=== PATIENT | male | born 1940 | race Caucasian/White ===

== ENCOUNTER 2020-08-13 13:20 | Outpatient (CLI) | payer MEDICARE ==
[2020-08-13] MEDS ORDERED: LIDOCAINE SOLN 4% 50 ML BOTTLE ONE (13:36)
[2020-08-13] MEDS ORDERED: DAKINS HALF STRENGTH (0.25%) 480 ML BOTTLE ONE (14:30)
[2020-08-13] MEDS ORDERED: MUPIROCIN 2% CREAM 15 GM TUBE TP ONE ×2 (14:34→14:51)
== END 2020-08-13 23:59 | disposition home health service (06) ==
LOC: WOU 13:20
PROVIDERS: ATTEND Podiatrist Foot & Ankle Surgery
DX: I87.333 Chronic venous hypertension (idiopathic) with ulcer and inflammation of bilateral lower extremity (principal); L97.822 Non-pressure chronic ulcer of other part of left lower leg with fat layer exposed; L97.812 Non-pressure chronic ulcer of other part of right lower leg with fat layer exposed; S91.112A Laceration without foreign body of left great toe without damage to nail, initial encounter; S91.111A Laceration without foreign body of right great toe without damage to nail, initial encounter; S91.115A Laceration without foreign body of left lesser toe(s) without damage to nail, initial encounter; S91.114A Laceration without foreign body of right lesser toe(s) without damage to nail, initial encounter; W18.30XA Fall on same level, unspecified, initial encounter; Y92.89 Other specified places as the place of occurrence of the external cause; M86.071 Acute hematogenous osteomyelitis, right ankle and foot; I87.2 Venous insufficiency (chronic) (peripheral); I73.9 Peripheral vascular disease, unspecified; R60.0 Localized edema; Z79.82 Long term (current) use of aspirin
CPT/HCPCS: 11042; 11044; 87070-TC; 87075-TC; 87186-TC; 88305-TC; 88311-TC; 88312-TC

== ENCOUNTER 2020-08-20 13:10 | Outpatient (CLI) | payer MEDICARE ==
[2020-08-20] MEDS ORDERED: LIDOCAINE SOLN 4% 50 ML BOTTLE ONE (13:15)
[2020-08-20] MEDS ORDERED: DAKINS HALF STRENGTH (0.25%) 480 ML BOTTLE ONE (14:48)
[2020-08-20] MEDS ORDERED: MUPIROCIN 2% CREAM 15 GM TUBE TP ONE (14:53)
== END 2020-08-20 23:59 | disposition home health service (06) ==
LOC: WOU 13:10
PROVIDERS: ATTEND Podiatrist Foot & Ankle Surgery
DX: I87.333 Chronic venous hypertension (idiopathic) with ulcer and inflammation of bilateral lower extremity (principal); L97.822 Non-pressure chronic ulcer of other part of left lower leg with fat layer exposed; L97.812 Non-pressure chronic ulcer of other part of right lower leg with fat layer exposed; S91.111A Laceration without foreign body of right great toe without damage to nail, initial encounter; S91.114A Laceration without foreign body of right lesser toe(s) without damage to nail, initial encounter; X58.XXXA Exposure to other specified factors, initial encounter; Y92.89 Other specified places as the place of occurrence of the external cause; S91.112D Laceration without foreign body of left great toe without damage to nail, subsequent encounter; S91.115D Laceration without foreign body of left lesser toe(s) without damage to nail, subsequent encounter; X58.XXXD Exposure to other specified factors, subsequent encounter; I87.2 Venous insufficiency (chronic) (peripheral); I73.9 Peripheral vascular disease, unspecified; R60.0 Localized edema; M86.071 Acute hematogenous osteomyelitis, right ankle and foot; I10 Essential (primary) hypertension; Z96.641 Presence of right artificial hip joint; Z79.82 Long term (current) use of aspirin
CPT/HCPCS: 11042; 11044; A6452

== ENCOUNTER 2020-08-27 13:18 | Outpatient (CLI) | payer MEDICARE ==
[~2020-08-27 13:18] MED LIST: LIDOCAINE SOLN 4% 50 ML BOTTLE ONE
[2020-08-27] MEDS ORDERED: UREA 10% -AHA 4% CREAM 57 GM TUBE ONE (13:35)
[2020-08-27] MEDS ORDERED: GENTAMICIN 0.1% CREAM 15 GM TUBE ONE (13:35)
== END 2020-08-27 23:59 | disposition home health service (06) ==
LOC: WOU 13:18
PROVIDERS: ATTEND Podiatrist Foot & Ankle Surgery
DX: S91.112A Laceration without foreign body of left great toe without damage to nail, initial encounter (principal); S91.111A Laceration without foreign body of right great toe without damage to nail, initial encounter; S91.114A Laceration without foreign body of right lesser toe(s) without damage to nail, initial encounter; X58.XXXA Exposure to other specified factors, initial encounter; Y92.89 Other specified places as the place of occurrence of the external cause; M86.071 Acute hematogenous osteomyelitis, right ankle and foot; I87.2 Venous insufficiency (chronic) (peripheral); I73.9 Peripheral vascular disease, unspecified; R60.0 Localized edema; I10 Essential (primary) hypertension; Z79.82 Long term (current) use of aspirin
CPT/HCPCS: 11042; 11043; 87070-TC; 87075-TC; 87186-TC

== ENCOUNTER 2020-09-03 12:05 | Outpatient (CLI) | payer MEDICARE ==
[2020-09-03] MEDS ORDERED: LIDOCAINE SOLN 4% 50 ML BOTTLE ONE (13:40)
[2020-09-03] MEDS ORDERED: UREA 10% -AHA 4% CREAM 57 GM TUBE ONE (14:42)
== END 2020-09-03 23:59 | disposition home or self-care (01) ==
LOC: WOU 12:05
PROVIDERS: ATTEND Podiatrist Foot & Ankle Surgery
DX: S91.114A Laceration without foreign body of right lesser toe(s) without damage to nail, initial encounter (principal); W19.XXXA Unspecified fall, initial encounter; Y92.89 Other specified places as the place of occurrence of the external cause; S91.112D Laceration without foreign body of left great toe without damage to nail, subsequent encounter; S91.111D Laceration without foreign body of right great toe without damage to nail, subsequent encounter; W19.XXXD Unspecified fall, subsequent encounter; I87.2 Venous insufficiency (chronic) (peripheral); I73.9 Peripheral vascular disease, unspecified; R60.0 Localized edema; M86.071 Acute hematogenous osteomyelitis, right ankle and foot; Z79.82 Long term (current) use of aspirin

== ENCOUNTER 2020-09-07 13:15 | Outpatient (CLI) | payer MEDICARE ==
[2020-09-07] MEDS ORDERED: MUPIROCIN 2% CREAM 15 GM TUBE TP ONE (14:18)
[2020-09-07] MEDS ORDERED: DAKINS HALF STRENGTH (0.25%) 480 ML BOTTLE ONE (14:23)
== END 2020-09-07 23:59 | disposition home health service (06) ==
LOC: WOU 13:15
PROVIDERS: ATTEND Podiatrist Foot & Ankle Surgery
DX: T81.31XA Disruption of external operation (surgical) wound, not elsewhere classified, initial encounter (principal); S91.111D Laceration without foreign body of right great toe without damage to nail, subsequent encounter; S91.115D Laceration without foreign body of left lesser toe(s) without damage to nail, subsequent encounter; S91.114D Laceration without foreign body of right lesser toe(s) without damage to nail, subsequent encounter; W18.30XD Fall on same level, unspecified, subsequent encounter; M86.071 Acute hematogenous osteomyelitis, right ankle and foot; I87.2 Venous insufficiency (chronic) (peripheral); R60.0 Localized edema; Z79.82 Long term (current) use of aspirin
CPT/HCPCS: 11044

== ENCOUNTER 2020-09-10 13:00 | Outpatient (CLI) | payer MEDICARE | END 2020-09-10 23:59 | disposition home health service (06) | LOC: WOU 13:00 | PROVIDERS: ATTEND Podiatrist Foot & Ankle Surgery | DX: S91.115A Laceration without foreign body of left lesser toe(s) without damage to nail, initial encounter (principal); W18.30XA Fall on same level, unspecified, initial encounter; Y92.89 Other specified places as the place of occurrence of the external cause; S91.111D Laceration without foreign body of right great toe without damage to nail, subsequent encounter; S91.114D Laceration without foreign body of right lesser toe(s) without damage to nail, subsequent encounter; W18.30XD Fall on same level, unspecified, subsequent encounter; Z79.82 Long term (current) use of aspirin | CPT/HCPCS: 11044 ==

== ENCOUNTER 2020-09-14 13:00 | Outpatient (CLI) | payer MEDICARE ==
[2020-09-14] MEDS ORDERED: LIDOCAINE SOLN 4% 50 ML BOTTLE ONE (13:06)
[2020-09-14] MEDS ORDERED: LIDOCAINE HCL/MPF 1% 30 ML VIAL IJ ONE (13:48)
[2020-09-14] MEDS ORDERED: UREA 10% -AHA 4% CREAM 57 GM TUBE ONE (14:04)
[2020-09-14] MEDS ORDERED: MUPIROCIN 2% CREAM 15 GM TUBE TP ONE (14:04)
== END 2020-09-14 23:59 | disposition home health service (06) ==
LOC: WOU 13:00
PROVIDERS: ATTEND Podiatrist Foot & Ankle Surgery
DX: S91.114A Laceration without foreign body of right lesser toe(s) without damage to nail, initial encounter (principal); W18.30XA Fall on same level, unspecified, initial encounter; Y92.89 Other specified places as the place of occurrence of the external cause; S91.111D Laceration without foreign body of right great toe without damage to nail, subsequent encounter; S91.115D Laceration without foreign body of left lesser toe(s) without damage to nail, subsequent encounter; W18.30XD Fall on same level, unspecified, subsequent encounter; Z79.82 Long term (current) use of aspirin; M86.071 Acute hematogenous osteomyelitis, right ankle and foot; I87.2 Venous insufficiency (chronic) (peripheral); I73.9 Peripheral vascular disease, unspecified; R60.0 Localized edema; Z96.641 Presence of right artificial hip joint
CPT/HCPCS: 11044; J3490

== ENCOUNTER 2020-09-21 13:55 | Outpatient (CLI) | payer MEDICARE ==
[2020-09-21] MEDS ORDERED: UREA 10% -AHA 4% CREAM 57 GM TUBE ONE (13:58)
[2020-09-21] MEDS ORDERED: MUPIROCIN 2% CREAM 15 GM TUBE TP ONE (13:59)
== END 2020-09-21 23:59 | disposition home health service (06) ==
LOC: WOU 13:55
PROVIDERS: ATTEND Podiatrist Foot & Ankle Surgery
DX: S91.111D Laceration without foreign body of right great toe without damage to nail, subsequent encounter (principal); S91.115D Laceration without foreign body of left lesser toe(s) without damage to nail, subsequent encounter; S91.114D Laceration without foreign body of right lesser toe(s) without damage to nail, subsequent encounter; W18.30XD Fall on same level, unspecified, subsequent encounter; I87.2 Venous insufficiency (chronic) (peripheral); I73.9 Peripheral vascular disease, unspecified; R60.0 Localized edema; M86.071 Acute hematogenous osteomyelitis, right ankle and foot; Z79.82 Long term (current) use of aspirin
CPT/HCPCS: G0463

== ENCOUNTER 2020-09-28 13:35 | Outpatient (CLI) | payer MEDICARE ==
[2020-09-28] MEDS ORDERED: UREA 10% -AHA 4% CREAM 57 GM TUBE ONE (13:49)
[2020-09-28] MEDS ORDERED: MUPIROCIN 2% CREAM 15 GM TUBE TP ONE (13:49)
== END 2020-09-28 23:59 | disposition home health service (06) ==
LOC: WOU 13:35
PROVIDERS: ATTEND Podiatrist Foot & Ankle Surgery
DX: S91.115D Laceration without foreign body of left lesser toe(s) without damage to nail, subsequent encounter (principal); S91.114D Laceration without foreign body of right lesser toe(s) without damage to nail, subsequent encounter; W18.30XD Fall on same level, unspecified, subsequent encounter; I87.2 Venous insufficiency (chronic) (peripheral); I73.9 Peripheral vascular disease, unspecified; R60.0 Localized edema; Z79.82 Long term (current) use of aspirin; Z96.641 Presence of right artificial hip joint; Z95.828 Presence of other vascular implants and grafts; I10 Essential (primary) hypertension
CPT/HCPCS: G0463

== ENCOUNTER 2020-10-05 13:35 | Outpatient (CLI) | payer MEDICARE ==
[2020-10-05] MEDS ORDERED: MUPIROCIN 2% CREAM 15 GM TUBE TP ONE (15:01)
== END 2020-10-05 23:59 | disposition home health service (06) ==
LOC: WOU 13:35
PROVIDERS: ATTEND Podiatrist Foot & Ankle Surgery
DX: I87.2 Venous insufficiency (chronic) (peripheral) (principal); L97.812 Non-pressure chronic ulcer of other part of right lower leg with fat layer exposed; R60.0 Localized edema; I73.9 Peripheral vascular disease, unspecified; S91.114D Laceration without foreign body of right lesser toe(s) without damage to nail, subsequent encounter; X58.XXXD Exposure to other specified factors, subsequent encounter; I10 Essential (primary) hypertension; Z96.641 Presence of right artificial hip joint; Z79.82 Long term (current) use of aspirin
CPT/HCPCS: 11042

== ENCOUNTER 2020-10-12 13:40 | Outpatient (CLI) | payer MEDICARE | END 2020-10-12 23:59 | disposition home health service (06) | LOC: WOU 13:40 | PROVIDERS: ATTEND Podiatrist Foot & Ankle Surgery | DX: S91.114A Laceration without foreign body of right lesser toe(s) without damage to nail, initial encounter (principal); X58.XXXA Exposure to other specified factors, initial encounter; Y92.89 Other specified places as the place of occurrence of the external cause; I87.2 Venous insufficiency (chronic) (peripheral); L97.812 Non-pressure chronic ulcer of other part of right lower leg with fat layer exposed; I73.9 Peripheral vascular disease, unspecified; R60.0 Localized edema; Z79.82 Long term (current) use of aspirin | CPT/HCPCS: 11042 ==

== ENCOUNTER 2020-10-19 13:40 | Outpatient (CLI) | payer MEDICARE ==
[2020-10-19] MEDS ORDERED: UREA 10% -AHA 4% CREAM 57 GM TUBE ONE (14:19)
== END 2020-10-19 23:59 | disposition home health service (06) ==
LOC: WOU 13:40
PROVIDERS: ATTEND Podiatrist Foot & Ankle Surgery
DX: S91.114D Laceration without foreign body of right lesser toe(s) without damage to nail, subsequent encounter (principal); W18.30XD Fall on same level, unspecified, subsequent encounter; I87.2 Venous insufficiency (chronic) (peripheral); I73.9 Peripheral vascular disease, unspecified; R60.0 Localized edema; Z96.641 Presence of right artificial hip joint; Z79.82 Long term (current) use of aspirin
CPT/HCPCS: G0463

== ENCOUNTER 2020-10-26 13:40 | Outpatient (CLI) | payer MEDICARE ==
[2020-10-26] MEDS ORDERED: UREA 10% -AHA 4% CREAM 57 GM TUBE ONE (13:41)
== END 2020-10-26 23:59 | disposition home or self-care (01) ==
LOC: WOU 13:40
PROVIDERS: ATTEND Podiatrist Foot & Ankle Surgery
DX: I87.2 Venous insufficiency (chronic) (peripheral) (principal); I73.9 Peripheral vascular disease, unspecified; R60.0 Localized edema; I10 Essential (primary) hypertension; Z96.641 Presence of right artificial hip joint; Z79.82 Long term (current) use of aspirin
CPT/HCPCS: G0463

== ENCOUNTER 2020-11-23 13:45 | Outpatient (CLI) | payer MEDICARE | END 2020-11-23 23:59 | disposition home or self-care (01) | LOC: WOU 13:45 | PROVIDERS: ATTEND Podiatrist Foot & Ankle Surgery | DX: I87.2 Venous insufficiency (chronic) (peripheral) (principal); I73.9 Peripheral vascular disease, unspecified; L84 Corns and callosities; R60.0 Localized edema; I10 Essential (primary) hypertension | CPT/HCPCS: G0463 ==

== ENCOUNTER 2020-12-28 02:00 | Outpatient (CLI) | payer MEDICARE | END 2020-12-28 23:59 | disposition home or self-care (01) | LOC: WOU 02:00 | PROVIDERS: ATTEND Podiatrist Foot & Ankle Surgery | DX: I87.311 Chronic venous hypertension (idiopathic) with ulcer of right lower extremity (principal); L97.818 Non-pressure chronic ulcer of other part of right lower leg with other specified severity; I87.2 Venous insufficiency (chronic) (peripheral); I73.9 Peripheral vascular disease, unspecified; R60.0 Localized edema; Z79.82 Long term (current) use of aspirin | CPT/HCPCS: 11042 ==

== ENCOUNTER 2021-01-04 13:25 | Outpatient (CLI) | payer MEDICARE | END 2021-01-04 23:59 | disposition home or self-care (01) | LOC: WOU 13:25 | PROVIDERS: ATTEND Podiatrist Foot & Ankle Surgery | DX: I87.2 Venous insufficiency (chronic) (peripheral) (principal); L97.818 Non-pressure chronic ulcer of other part of right lower leg with other specified severity; I73.9 Peripheral vascular disease, unspecified; R60.0 Localized edema; Z79.82 Long term (current) use of aspirin | CPT/HCPCS: G0463 ==

== ENCOUNTER 2021-01-18 13:25 | Outpatient (CLI) | payer MEDICARE | END 2021-01-18 23:59 | disposition home or self-care (01) | LOC: WOU 13:25 | PROVIDERS: ATTEND Podiatrist Foot & Ankle Surgery | DX: I87.2 Venous insufficiency (chronic) (peripheral) (principal); L97.822 Non-pressure chronic ulcer of other part of left lower leg with fat layer exposed; I73.9 Peripheral vascular disease, unspecified; R60.0 Localized edema; Z79.82 Long term (current) use of aspirin | CPT/HCPCS: 11042 ==

== ENCOUNTER 2021-01-28 13:30 | Outpatient (CLI) | payer MEDICARE | END 2021-01-28 23:59 | disposition home or self-care (01) | LOC: WOU 13:30 | PROVIDERS: ATTEND Podiatrist Foot & Ankle Surgery | DX: I87.2 Venous insufficiency (chronic) (peripheral) (principal); L97.822 Non-pressure chronic ulcer of other part of left lower leg with fat layer exposed; L97.812 Non-pressure chronic ulcer of other part of right lower leg with fat layer exposed; R60.0 Localized edema; I73.9 Peripheral vascular disease, unspecified; I10 Essential (primary) hypertension; Z79.82 Long term (current) use of aspirin | CPT/HCPCS: 11042 ==

== ENCOUNTER 2021-02-08 14:10 | Outpatient (CLI) | payer MEDICARE ==
[2021-02-08] MEDS ORDERED: MUPIROCIN 2% CREAM 15 GM TUBE TP ONE (14:49)
== END 2021-02-08 23:59 | disposition home or self-care (01) ==
LOC: WOU 14:10
PROVIDERS: ATTEND Podiatrist Foot & Ankle Surgery
DX: I87.313 Chronic venous hypertension (idiopathic) with ulcer of bilateral lower extremity (principal); L97.822 Non-pressure chronic ulcer of other part of left lower leg with fat layer exposed; L97.818 Non-pressure chronic ulcer of other part of right lower leg with other specified severity; I73.9 Peripheral vascular disease, unspecified; I87.2 Venous insufficiency (chronic) (peripheral); R60.0 Localized edema; I10 Essential (primary) hypertension; Z79.82 Long term (current) use of aspirin
CPT/HCPCS: 11042